=== PATIENT | female | born 1975 | race Two or more races ===

== ENCOUNTER 2025-07-09 14:55 | Emergency (ER) | payer OTHER ==
[~2025-07-09] VITALS: Ht 152.4 cm; Wt 83.9 kg
[2025-07-09] MEDS ORDERED: ACETAMINOPHEN500 M1 PO (15:43)
[2025-07-09 15:52] LABS: BASO % 0.5 % (0.1-1.2); EOS # 0.11 (0.04-0.54); EOS % 1.1 % (0.7-7.0); LYMPH # 1.67 (1.18-3.74); LYMPH % 17.4 % (19.3-53.1); MEAN PLATELET VOLUME 10.90 fl (9.4-12.4); MONO # 0.50 (0.24-0.82); MONO % 5.2 % (4.7-12.5); NEUT # 7.23 (1.56-6.13); NEUT % 75.3 % (34.0-71.1); RED CELL DISTRIBUTION WIDTH 14.4 % (11.6-14.4)
[2025-07-09] MEDS ORDERED: 0.9 % SODIUM CHLORIDE 500 ML IV SCH (16:15)
== END 2025-07-09 18:12 | disposition home or self-care (01) ==
LOC: ER 14:55
PROVIDERS: General Practice
DX: D25.9 Leiomyoma of uterus, unspecified (principal); D64.9 Anemia, unspecified; N83.201 Unspecified ovarian cyst, right side; Z91.013 Allergy to seafood

== ENCOUNTER 2025-07-21 11:45 | Inpatient (IN) | payer OTHER ==
[~2025-07-21] VITALS: Ht 152.4 cm; Wt 84.8 kg
[~2025-07-21 11:45] MED LIST: ACETAMINOPHEN500 M1 PO
[2025-07-21 13:54] VITALS: BP 115/80
[2025-07-21 13:57] LABS: INR 1.01
[2025-07-21 15:01] VITALS: BP 117/75
[2025-07-25] MEDS ORDERED: CEFOXITIN SODIUM 2,000 MG in 0.9 % SODIUM CHLORIDE 100 ML IV ONE (10:45)
[2025-07-25] MEDS ORDERED: POVIDONE-IODINE 118 ML BOTT TOP ONE (10:45)
[2025-07-25] MEDS ORDERED: SUGAMMADEX SODIUM 200 MG/2 ML VIAL IV ONE (11:15)
[2025-07-25] MEDS ORDERED: MORPHINE SULFATE 4 MG/ML VIAL IV ONE ×2 (11:55→12:55)
[2025-07-25] MEDS ORDERED: MEPERIDINE HCL/PF 50 MG/ML VIAL IV SCH (12:01)
[2025-07-25] MEDS ORDERED: MORPHINE SULFATE 4 MG/ML CARTRIDGE IV SCH (12:04)
[2025-07-25] MEDS ORDERED: SIMETHICONE 125 MG CAPSULE PO SCH (13:00)
[2025-07-25 14:34] VITALS: BP 117/75; O2SAT 98
[2025-07-25 16:00] VITALS: BP 138/76
[2025-07-25] MEDS ORDERED: ONDANSETRON HCL 2 MG/ML VIAL IV PRN (16:15)
[2025-07-25] MEDS ORDERED: FAMOTIDINE/PF 20 MG/2 ML VIAL IV PUSH PRN (16:15)
[2025-07-25 17:10] LABS: BASO % 0.2 % (0.1-1.2); EOS # 0.00 (0.04-0.54); EOS % 0.0 % (0.7-7.0); LYMPH # 0.46 (1.18-3.74); LYMPH % 3.0 % (19.3-53.1); MEAN PLATELET VOLUME 11.00 fl (9.4-12.4); MONO # 0.41 (0.24-0.82); MONO % 2.7 % (4.7-12.5); NEUT # 14.33 (1.56-6.13); NEUT % 93.8 % (34.0-71.1); RED CELL DISTRIBUTION WIDTH 15.2 % (11.6-14.4)
[2025-07-26 00:42] VITALS: BP 124/85
[2025-07-26] MEDS ORDERED: GABAPENTIN 300 MG CAPSULE PO SCH (05:00)
[2025-07-26 08:34] VITALS: BP 113/79
[2025-07-26 16:40] VITALS: BP 111/68
[2025-07-27] VITALS: BP 93/64
[2025-07-27] MEDS ORDERED: GABAPENTIN300 MG PO (07:01)
[2025-07-27] MEDS ORDERED: SIMETHICONE125 M1 PO (07:01)
[2025-07-27] MEDS ORDERED: IBUPROFEN800 MG PO (07:01)
[2025-07-27] MEDS ORDERED: AMOX1TAB5 PO (07:02)
[2025-07-27] MEDS ORDERED: MIRALAX17 GM PO (07:02)
[2025-07-27 08:49] VITALS: BP 100/65
== END 2025-07-27 09:57 | disposition home or self-care (01) | DRG 743 ==
LOC: O/R 07-25 07:00 → OB/GYN 07-25 07:00
PROVIDERS: ADMIT Obstetrics & Gynecology; ATTEND Obstetrics & Gynecology
PROC: 0UT60ZZ Resection of Left Fallopian Tube, Open Approach (ICD-10-PCS; 2025-07-25)
PROC: 0UT90ZZ Resection of Uterus, Open Approach (ICD-10-PCS; principal; 2025-07-25 10:00)
DX: D25.1 Intramural leiomyoma of uterus (principal); N80.03 Adenomyosis of the uterus; N93.9 Abnormal uterine and vaginal bleeding, unspecified; D64.9 Anemia, unspecified